=== PATIENT | male | born 1985 | race Two or more races ===

== ENCOUNTER 2021-03-26 11:41 | Emergency (ER) | payer OTHER, SELFPAY ==
--- NOTE | ~2021-03-26 | XR_ITS ---
EXAMINATION: XR TIBIA AND FIBULA, LEFT CLINICAL INFORMATION: Pain. No known trauma. COMPARISON: None TECHNIQUE: AP and lateral views of the left tibia and fibula were obtained. FINDINGS: There are old posttraumatic changes with healed fracture proximal fibular shaft and mid tibial shaft. Tibial fracture is reduced with intramedullary lenore and 2 proximal and 2 distal interlocking screws. The hardware is intact. There is no destructive process or osteolysis or periostitis. No acute or healing fracture. Hoffa's fat pad appears normal. XR/XR tibia fibula LT 2V IMPRESSION: Old posttraumatic changes tibia and fibula. Hardware intact. No acute abnormality.
--- NOTE | ~2021-03-26 | XR_ITS ---
EXAMINATION: XR HIP, LEFT CLINICAL INFORMATION: Pain. No trauma. COMPARISON: None TECHNIQUE: 2 frontal views of the pelvis are performed along with AP and frog-lateral projections of the left hip. There are total of 4 views. FINDINGS: There is no fracture or dislocation or destructive process. Bowel gas is unremarkable. Bony mineralization appears normal. There is no destructive process or periostitis. The SI joints and pubis show no diastases. The hips are unremarkable. Left hip shows no fracture or dislocation or arthropathy. No joint narrowing or erosive change or chondrocalcinosis. XR/XR hip LT w PEL1V IMPRESSION: Normal study.
[2021-03-26 12:10] VITALS: BP 143/72; PULSE 68; RESP 18; TEMP 36.9; O2SAT 98; BMI 26.6
--- NOTE | 2021-03-26 13:10 | ED_ITS ---
HPI - Back Pain/Injury General Chief Complaint: Back Pain/Injury Stated Complaint: Back Pain Time Seen by Provider: 03/26/21 12:55 Source: patient and veterinary pathologist Mode of arrival: ambulatory Limitations: language barrier History of Present Illness HPI Narrative: 35-year-old male with a history of prior surgery to the left lower extremity with rods and screws placed here complaints of left ankle pain since last evening. No new injury or trauma. Patient tells me he had surgery approximately 8 years ago. He does have intermittent pain and swelling to the ankle but this pain is worse. He also reports some discomfort to the left hip with no known injury or trauma. Patient feels pain in the hip which radiates down the lateral side of the leg. There is no associated numbness or tingling or sensation change. No back pain or abdominal pain. Pain is worsened with movement of the extremity Related Data Previous Rx's Medication Instructions Recorded cyclobenzaprine 10 mg tablet 10 mg PO TID PRN #10 tab 03/26/21 naproxen 500 mg tablet 500 mg PO BID PRN #20 tab 03/26/21 Allergies Allergy/AdvReac Type Severity Reaction Status Date / Time No Known Allergies Allergy Verified 03/26/21 12:10 Review of Systems Review of Systems: Yes all other systems are reviewed and are negative Constitutional: Constitutional: Reports no additional constitutional complaints, Denies body ache(s), Denies chills, Denies fever(s), Denies headache(s) and Denies weakness Eyes: Eyes: Reports no additional eye complaints and Denies change in vision ENT: Reports system reviewed and no additional complaints, except as documented, Denies dizziness, Denies headache(s), Denies nasal congestion, Denies nasal discharge and Denies neck pain Cardiovascular: Cardiovascular: Reports no additional cardiovascular complaints, Denies chest pain, Denies leg edema and Denies dyspnea Respiratory: Respiratory: Reports no additional respiratory complaints, Denies cough and Denies dyspnea Gastrointestinal: Gastrointestinal: Reports no additional gastrointestinal complaints, Denies abdominal pain, Denies diarrhea, Denies nausea and Denies vomiting Genitourinary: Genitourinary: Denies urinary incontinence Musculoskeletal: Musculoskeletal: Reports no additional musculoskeletal complaints, Denies back pain, Reports arthralgias, Denies joint swelling, Denies neck pain, Denies numbness and Denies tingling Integumentary/Breasts: Skin/Breast: Reports system reviewed and no additional complaints, except as docu and Denies rash Neurologic: Reports system reviewed and no additional complaints, except as documented, Denies Abnormal speech present, Denies dizziness, Denies headache(s), Denies numbness, Denies tingling and Denies weakness PMFSH Past Medical History Attestation statement: The following information was validated with the patient. Source: old records reviewed and nursing notes reviewed Medical History COVID-19 Social History Social History Advance Directives: No Advance Directives Information Provided: Yes Physical Exam Vital Signs: Vital Signs: Last Vital Signs Temp 98.5 F 03/26/21 12:10 Pulse 68 03/26/21 12:10 Resp 18 03/26/21 12:10 BP 143/72 H 03/26/21 12:10 Pulse Ox 98 03/26/21 12:10 BMI result Body Mass Index 26.6 Const: General: cooperative, healthy appearing, comfortable and no acute distress Orientation/consciousness: patient oriented x3 Limitations: no limitations HENMT: Head: Yes normal to inspection Ears: hearing grossly normal bilaterally General nose exam: Normal external nose present Face and sinus: Yes normal facial exam Mouth: Normal oral and palatal mucosa present Throat: Yes posterior oropharynx normal Eyes: General: appearance normal, both eyes and all related structures Pupils: Equal, round and reactive pupils present Neck: Neck: Yes normal visual inspection Chest: Chest palpation & inspection: normal inspection of the chest Resp: Effort & Inspection: normal respiratory effort Auscultation: clear to auscultation bilaterally Cardio: Rate: regular rate Rhythm: regular rhythm Peripheral pulses: Peripheral pulses 2+ throughout GI: Inspection: Yes normal to inspection Palpation (GI): Soft to palpation and nontender Auscultation: normal bowel sounds : General: Yes no CVA tenderness Back/Spine/Pelvis: Back: no CVA tenderness Thoracic/Lumbar Spine: thoracic and lumbar spine normal to inspection Skin: General skin exam: no rashes or lesions noted Neuro: General: patient oriented x3, no focal motor deficits and normal sensation to monofilament Cranial nerves: Yes CN's II-XII intact bilaterally, Yes Equal, round and reactive pupils present, Yes Bilaterally intact EOM present, Yes Nystagmus not present, Yes Normal facial strength present and Yes Midline tongue present Cognition (Neuro): normal cognition Speech: No Abnormal speech present Gait exam (Neuro): Normal gait present Motor exam (neuro): 5/5 motor strength present throughout Sensory Exam: Normal double simultaneous stimulation for sensation Extrem: Other: Tenderness over the medial left ankle with no swelling, ecchymosis noted. Full range of motion There is also tenderness to the left lateral hip pain over the lateral leg with no swelling, ecchymosis. Pain is worsened with straight leg raise of the left leg. General: Yes normal to inspection Course Course Course Narrative: 35-year-old male here with complaints of left hip pain and left ankle pain which is atraumatic. On exam there is no appreciable swelling or deformity. Patient does have prior surgery with lenore and screw placement to the left ankle. Will check x-ray 1440-x-ray the left hip show no abnormality. Exam is consistent with hip flexor strain. 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 Will start patient on low-dose muscle relaxant with the NSAID and recommend some heat and gentle stretching. X-rays of left tibia and fibula show hardware in place. No new fracture or injury. Is this the patient that orthopedic hardware can be painful at times. He can follow up outpatient with Orthopedics to discuss removal of he continues to have discomfort. Reviewed worrisome signs symptoms when to return to the emergency department. Comfortable discharge home. MDM - Back Pain/Injury Medical Records Attestation: I reviewed the patient's medical records. Lab Data Attestation: I reviewed the patient's lab results. Imaging Data left hip xrayu: Attestation: I personally reviewed and interpreted this imaging study as follows: Radiologist's impression: FINDINGS: There is no fracture or dislocation or destructive process. Bowel gas is unremarkable. Bony mineralization appears normal. There is no destructive process or periostitis. The SI joints and pubis show no diastases. The hips are unremarkable. Left hip shows no fracture or dislocation or arthropathy. No joint narrowing or erosive change or chondrocalcinosis. XR/XR hip LT w PEL1V IMPRESSION: Normal study. ? left tibia/fibula xray: Attestation: I personally reviewed and interpreted this imaging study as follows: Radiologist's impression: FINDINGS: There are old posttraumatic changes with healed fracture proximal fibular shaft and mid tibial shaft. Tibial fracture is reduced with intramedullary lenore and 2 proximal and 2 distal interlocking screws. The hardware is intact. There is no destructive process or osteolysis or periostitis. No acute or healing fracture. Hoffa's fat pad appears normal.? XR/XR tibia fibula LT 2V IMPRESSION: Old posttraumatic changes tibia and fibula. Hardware intact. No acute abnormality. ? Discharge Plan Discharge Clinical Impression: Strain of flexor muscle of left hip, Painful orthopaedic hardware Patient Disposition: Home, Self-Care Instructions: Groin Strain (ED) Additional Instructions: Sometimes the orthopedic hardware can may be painful Follow-up with Orthopedics to discuss. Your x-ray showed that everything is aligned appropriately. Heat or ice to the area, gentle stretching, elevation Prescriptions: New cyclobenzaprine 10 mg tablet 10 mg PO TID PRN (Reason: muscle spasm) Qty: 10 RF: 0 naproxen 500 mg tablet 500 mg PO BID PRN (Reason: pain) Qty: 20 RF: 0 Referrals: Physician,Unknown J [Primary Care Provider] - 2 days Stand Alone Forms: Work/School Release Interventions: ED Discharge Assessment Last Done: 03/26/21 14:26 Discharge Date/Time: 03/26/21 14:26
== END 2021-03-26 14:26 | disposition home or self-care (01) ==
PROVIDERS: Emergency Provider Emergency Medicine Emergency Medical Services
DX: S76.012A Strain of muscle, fascia and tendon of left hip, initial encounter (principal); X58.XXXA Exposure to other specified factors, initial encounter; Y93.9 Activity, unspecified; Y92.9 Unspecified place or not applicable; Y99.9 Unspecified external cause status; Z79.899 Other long term (current) drug therapy
CPT/HCPCS: 73502; 73590; 99283